=== PATIENT | male | born 1955 | race Caucasian/White ===

== ENCOUNTER 2017-02-20 11:09 | Inpatient (IN) ==
[2017-02-20] MEDS ORDERED: LACTULOSE 20 GM/30 ML UDCUP PO PRN (16:03)
[2017-02-20] MEDS ORDERED: MAGNESIUM SULF RIDER 4 GM in PREMIX 1 EACH IV PRN (16:03)
[2017-02-20] MEDS ORDERED: DOCUSATE SODIUM 100 MG CAPSULE PO PRN (16:03)
[2017-02-20] MEDS ORDERED: MAGNESIUM SULF RIDER 2 GM in PREMIX 1 EACH IV PRN (16:03)
[2017-02-20] MEDS ORDERED: ONDANSETRON 4 MG/2 ML VIAL IV PRN (16:03)
[2017-02-20] MEDS ORDERED: POTASSIUM CHLORIDE 20 MEQ TABLET PO PRN (16:03)
[2017-02-20] MEDS: WARFARIN 7.5 MG TABLET PO SCH (18:16)
[2017-02-20] MEDS ORDERED: AMITRIPTYLINE 50 MG TABLET PO SCH (21:00)
[2017-02-20] MEDS: CARVEDILOL 6.25 MG TABLET PO SCH (21:27)
[2017-02-20] MEDS: traMADol 50 MG TABLET PO PRN (23:50)
[2017-02-21] MEDS: ZALEPLON 5 MG CAPSULE PO PRN (02:00)
[2017-02-21 05:32] LABS: Osmolality,Calculated 281.4 MOS/KG (273-304)
[2017-02-21 05:35] LABS: HDL Cholesterol 19 MG/DL (40-60); Risk Ratio 2.63; Triglycerides 46 MG/DL (2-150); VLDL CHOLESTEROL 9.2 MG/DL
[2017-02-21 06:02] LABS: Cholesterol < 50 MG/DL (50-200)
[2017-02-21 06:37] LABS: Basophils # 0.1 10*3/uL (0.0-0.2); Basophils % 0.8 % (0.0-0.8); Eosinophils # 0.3 10*3/uL (0.0-0.87); Eosinophils % 3.4 % (0.00-10.9); Hematocrit 37.8 VOL% (42.0-52.0); Hemoglobin 11.6 GM/DL (14.0-18.0); Immature Granulocytes % 0.3 %; Immature Granulocytes Absolute 0.03 #; Lymphocytes % 42.8 % (21.2-54.2); Mean Corpuscular HGB Conc 30.7 GM/DL (32-36); Mean Corpuscular Hemoglobin 26 PG (27-34); Mean Corpuscular Volume 85.3 FL (87-102); Mean Platelet Volume 10.1 FL (9.6-12.0); Monocytes # 0.6 10*3/uL (0.11-0.8); Monocytes % 6.5 % (1.7-12.7); NRBC # 0.02 10*3/uL; Neutrophils # 4.3 10*3/uL (1.4-7.4); Neutrophils % 46.2 % (38.7-73.9); Platelet Count 304 T/CUMM (130-400); Red Blood Count 4.43 MC/CUMM (3.8-5.5); Red Cell Distribution Width 16.1 % (9.3-17.3); White Blood Count 9.3 T/CUMM (4-12)
[2017-02-21 06:42] LABS: INR 3.3
[2017-02-21 06:50] LABS: PT Patient Result 33.3 SECS
[2017-02-21] MEDS: ASPIRIN EC 81 MG TABLET PO SCH (08:24)
[2017-02-21] MEDS: GABAPENTIN 400 MG CAPSULE PO SCH (08:24)
[2017-02-21] MEDS: PANTOPRAZOLE 40 MG TABLET PO SCH (08:24)
[2017-02-21] MEDS: CARVEDILOL 6.25 MG TABLET PO SCH ×2 (08:24→21:07)
[2017-02-21] MEDS: MULTIVITAMIN (CENTRUM) TABLET PO SCH (08:24)
[2017-02-21] MEDS: MEXILETINE 200 MG CAPSULE PO SCH (08:24)
[2017-02-21] MEDS: LOSARTAN 50 MG TABLET PO SCH (08:24)
[2017-02-21] MEDS: THIAMINE 100 MG TABLET PO SCH (08:24)
[2017-02-21] MEDS: traMADol 50 MG TABLET PO PRN ×2 (11:14→21:07)
[2017-02-21 13:39] LABS: Hepatitis A Ab IgM Quant 0.49 Index; Hepatitis A Ab IgM Result Negative (Negative); Hepatitis B Core IgM Quant 0.06 Index; Hepatitis B Core IgM Result Negative (Negative); Hepatitis B Surface Ag Quant < 0.10 Index; Hepatitis B Surface Ag Result Negative (Negative); Hepatitis C Virus Ab Quant 0.18 Index; Hepatitis C Virus Ab Result Negative (Negative)
[2017-02-21] MEDS ORDERED: MORPHINE 10 MG/1 ML VIAL ONE ×2 (14:58→22:40)
[2017-02-21] MEDS: MORPHINE 2 MG/1 ML SYRINGE IV PRN ×2 (15:04→22:43)
[2017-02-21] MEDS: FUROSEMIDE 40 MG/4 ML VIAL IV SCH (16:13)
[2017-02-21] MEDS: AMITRIPTYLINE 100 MG TABLET PO SCH (21:06)
[2017-02-22 05:56] LABS: Basophils # 0.1 10*3/uL (0.0-0.2); Basophils % 0.4 % (0.0-0.8); Eosinophils # 0.5 10*3/uL (0.0-0.87); Eosinophils % 3.9 % (0.00-10.9); Immature Granulocytes % 0.4 %; Immature Granulocytes Absolute 0.05 #; Lymphocytes # 6.6 10*3/uL (1.4-4.0); Lymphocytes % 49.2 % (21.2-54.2); Mean Corpuscular HGB Conc 31.6 GM/DL (32-36); Mean Corpuscular Hemoglobin 27 PG (27-34); Mean Corpuscular Volume 84.3 FL (87-102); Mean Platelet Volume 10.2 FL (9.6-12.0); Monocytes # 0.6 10*3/uL (0.11-0.8); Monocytes % 4.1 % (1.7-12.7); NRBC # 0.02 10*3/uL; Neutrophils # 5.7 10*3/uL (1.4-7.4); Platelet Count 334 T/CUMM (130-400); Red Blood Count 4.51 MC/CUMM (3.8-5.5); Red Cell Distribution Width 16.3 % (9.3-17.3); White Blood Count 13.5 T/CUMM (4-12)
[2017-02-22 06:18] LABS: INR 4.3
[2017-02-22 06:23] LABS: Osmolality,Calculated 287.4 MOS/KG (273-304); Potassium 3.9 MMOL/L (3.5-5.1)
[2017-02-22 06:24] LABS: Albumin 2.9 G/DL (3.4-5.0); Bilirubin,Direct 0.71 MG/DL (0.0-0.20); Bilirubin,Indirect 0.9 MG/DL (0.0-1.0); Bilirubin,Total 1.6 MG/DL (0.2-1.0); PT Patient Result 43.1 SECS; Total Protein 5.7 G/DL (6.4-8.3)
[2017-02-22] MEDS: MEXILETINE 200 MG CAPSULE PO SCH (09:15)
[2017-02-22] MEDS: CARVEDILOL 6.25 MG TABLET PO SCH ×2 (09:15→20:52)
[2017-02-22] MEDS: PANTOPRAZOLE 40 MG TABLET PO SCH (09:15)
[2017-02-22] MEDS: LOSARTAN 50 MG TABLET PO SCH (09:15)
[2017-02-22] MEDS: ASPIRIN EC 81 MG TABLET PO SCH (09:15)
[2017-02-22] MEDS: GABAPENTIN 400 MG CAPSULE PO SCH (09:16)
[2017-02-22] MEDS: FUROSEMIDE 40 MG/4 ML VIAL IV SCH (09:16)
[2017-02-22] MEDS: MULTIVITAMIN (CENTRUM) TABLET PO SCH (09:16)
[2017-02-22] MEDS: THIAMINE 100 MG TABLET PO SCH (09:19)
[2017-02-22] MEDS: traMADol 50 MG TABLET PO PRN ×2 (14:40→20:51)
[2017-02-22] MEDS: LORazepam 2 MG/1 ML VIAL IV PRN (14:41)
[2017-02-22] MEDS: SPIRONOLACTONE 25 MG TABLET PO SCH (16:35)
[2017-02-22] MEDS: AMITRIPTYLINE 100 MG TABLET PO SCH (20:51)
[2017-02-23 05:30] LABS: Basophils % 0.3 % (0.0-0.8); Eosinophils # 0.6 10*3/uL (0.0-0.87); Hematocrit 39.5 VOL% (42.0-52.0); Hemoglobin 12.1 GM/DL (14.0-18.0); Immature Granulocytes % 0.5 %; Immature Granulocytes Absolute 0.06 #; Lymphocytes # 4.7 10*3/uL (1.4-4.0); Lymphocytes % 39.5 % (21.2-54.2); Mean Corpuscular HGB Conc 30.6 GM/DL (32-36); Mean Corpuscular Hemoglobin 26 PG (27-34); Mean Corpuscular Volume 85.5 FL (87-102); Mean Platelet Volume 10.5 FL (9.6-12.0); Monocytes # 0.4 10*3/uL (0.11-0.8); Monocytes % 3.2 % (1.7-12.7); Neutrophils # 6.1 10*3/uL (1.4-7.4); Neutrophils % 51.5 % (38.7-73.9); Platelet Count 374 T/CUMM (130-400); Red Blood Count 4.62 MC/CUMM (3.8-5.5); Red Cell Distribution Width 16.3 % (9.3-17.3); White Blood Count 11.9 T/CUMM (4-12)
[2017-02-23 05:42] LABS: INR 3.2
[2017-02-23 05:45] LABS: PT Patient Result 32.6 SECS
[2017-02-23 05:49] LABS: Calcium 8.2 MG/DL (8.5-10.1); Osmolality,Calculated 290.1 MOS/KG (273-304); Potassium 4.2 MMOL/L (3.5-5.1)
[2017-02-23] MEDS: traMADol 50 MG TABLET PO PRN ×2 (09:30→20:53)
[2017-02-23] MEDS: LOSARTAN 50 MG TABLET PO SCH (09:30)
[2017-02-23] MEDS: ASPIRIN EC 81 MG TABLET PO SCH (09:30)
[2017-02-23] MEDS: SPIRONOLACTONE 25 MG TABLET PO SCH (09:30)
[2017-02-23] MEDS: MULTIVITAMIN (CENTRUM) TABLET PO SCH (09:30)
[2017-02-23] MEDS: MEXILETINE 200 MG CAPSULE PO SCH (09:30)
[2017-02-23] MEDS: PANTOPRAZOLE 40 MG TABLET PO SCH (09:31)
[2017-02-23] MEDS: CARVEDILOL 6.25 MG TABLET PO SCH ×2 (09:31→20:53)
[2017-02-23] MEDS: FUROSEMIDE 40 MG TABLET PO SCH (09:31)
[2017-02-23] MEDS: THIAMINE 100 MG TABLET PO SCH (09:31)
[2017-02-23] MEDS: GABAPENTIN 400 MG CAPSULE PO SCH (09:31)
[2017-02-23] MEDS: ACETAMINOPHEN 325 MG TABLET PO PRN (12:10)
[2017-02-23] MEDS: LORazepam 2 MG/1 ML VIAL IV PRN (13:25)
[2017-02-23] MEDS: WARFARIN 7.5 MG TABLET PO SCH (18:50)
[2017-02-23] MEDS: AMITRIPTYLINE 100 MG TABLET PO SCH (20:53)
[2017-02-24] MEDS: traMADol 50 MG TABLET PO PRN ×3 (02:45→17:00)
[2017-02-24 06:06] LABS: PT Patient Result 20.3 SECS
[2017-02-24 06:21] LABS: Calcium 8.4 MG/DL (8.5-10.1); Osmolality,Calculated 285.4 MOS/KG (273-304); Potassium 3.9 MMOL/L (3.5-5.1)
[2017-02-24 06:51] LABS: Basophils % 0.3 % (0.0-0.8); Eosinophils # 0.5 10*3/uL (0.0-0.87); Eosinophils % 4.8 % (0.00-10.9); Hematocrit 39.2 VOL% (42.0-52.0); Hemoglobin 11.8 GM/DL (14.0-18.0); Immature Granulocytes % 0.3 %; Immature Granulocytes Absolute 0.03 #; Lymphocytes # 4.6 10*3/uL (1.4-4.0); Lymphocytes % 45.6 % (21.2-54.2); Mean Corpuscular HGB Conc 30.1 GM/DL (32-36); Mean Corpuscular Hemoglobin 26 PG (27-34); Mean Corpuscular Volume 86.7 FL (87-102); Mean Platelet Volume 10.3 FL (9.6-12.0); Monocytes # 0.4 10*3/uL (0.11-0.8); Monocytes % 4.1 % (1.7-12.7); NRBC # 0.02 10*3/uL; Neutrophils # 4.5 10*3/uL (1.4-7.4); Neutrophils % 44.9 % (38.7-73.9); Platelet Count 338 T/CUMM (130-400); Red Blood Count 4.52 MC/CUMM (3.8-5.5); Red Cell Distribution Width 16.5 % (9.3-17.3)
[2017-02-24] MEDS: CARVEDILOL 6.25 MG TABLET PO SCH ×2 (08:59→20:21)
[2017-02-24] MEDS: ASPIRIN EC 81 MG TABLET PO SCH (08:59)
[2017-02-24] MEDS: GABAPENTIN 400 MG CAPSULE PO SCH (08:59)
[2017-02-24] MEDS: LOSARTAN 50 MG TABLET PO SCH (08:59)
[2017-02-24] MEDS: FUROSEMIDE 40 MG TABLET PO SCH (08:59)
[2017-02-24] MEDS: PANTOPRAZOLE 40 MG TABLET PO SCH (09:00)
[2017-02-24] MEDS: MEXILETINE 200 MG CAPSULE PO SCH (09:00)
[2017-02-24] MEDS: THIAMINE 100 MG TABLET PO SCH (09:00)
[2017-02-24] MEDS: MULTIVITAMIN (CENTRUM) TABLET PO SCH (09:00)
[2017-02-24] MEDS: SPIRONOLACTONE 25 MG TABLET PO SCH (09:00)
[2017-02-24] MEDS: ACETAMINOPHEN 325 MG TABLET PO PRN (12:29)
[2017-02-24] MEDS: WARFARIN 7.5 MG TABLET PO SCH (17:00)
[2017-02-24] MEDS: AMITRIPTYLINE 100 MG TABLET PO SCH (20:21)
[2017-02-24] MEDS: ZALEPLON 5 MG CAPSULE PO PRN (20:21)
[2017-02-25] MEDS: traMADol 50 MG TABLET PO PRN ×4 (00:33→22:13)
[2017-02-25] MEDS: ZALEPLON 5 MG CAPSULE PO PRN (00:34)
[2017-02-25 05:08] LABS: Basophils % 0.3 % (0.0-0.8); Eosinophils # 0.3 10*3/uL (0.0-0.87); Eosinophils % 2.6 % (0.00-10.9); Hematocrit 38.2 VOL% (42.0-52.0); Hemoglobin 11.8 GM/DL (14.0-18.0); Immature Granulocytes % 0.3 %; Immature Granulocytes Absolute 0.04 #; Lymphocytes # 4.7 10*3/uL (1.4-4.0); Lymphocytes % 39.9 % (21.2-54.2); Mean Corpuscular HGB Conc 30.9 GM/DL (32-36); Mean Corpuscular Hemoglobin 26 PG (27-34); Mean Corpuscular Volume 84.7 FL (87-102); Mean Platelet Volume 10.1 FL (9.6-12.0); Monocytes # 0.8 10*3/uL (0.11-0.8); Monocytes % 6.5 % (1.7-12.7); Neutrophils # 5.9 10*3/uL (1.4-7.4); Neutrophils % 50.4 % (38.7-73.9); Platelet Count 366 T/CUMM (130-400); Red Blood Count 4.51 MC/CUMM (3.8-5.5); Red Cell Distribution Width 16.4 % (9.3-17.3); White Blood Count 11.7 T/CUMM (4-12)
[2017-02-25 05:17] LABS: INR 1.9; PT Patient Result 19.7 SECS
[2017-02-25 05:40] LABS: Calcium 8.3 MG/DL (8.5-10.1); Osmolality,Calculated 280.8 MOS/KG (273-304); Potassium 4.7 MMOL/L (3.5-5.1)
[2017-02-25] MEDS: SPIRONOLACTONE 25 MG TABLET PO SCH (08:53)
[2017-02-25] MEDS: MEXILETINE 200 MG CAPSULE PO SCH (08:53)
[2017-02-25] MEDS: THIAMINE 100 MG TABLET PO SCH (08:53)
[2017-02-25] MEDS: MULTIVITAMIN (CENTRUM) TABLET PO SCH (08:53)
[2017-02-25] MEDS: ASPIRIN EC 81 MG TABLET PO SCH (08:53)
[2017-02-25] MEDS: GABAPENTIN 400 MG CAPSULE PO SCH (08:53)
[2017-02-25] MEDS: LOSARTAN 50 MG TABLET PO SCH (08:53)
[2017-02-25] MEDS: FUROSEMIDE 40 MG TABLET PO SCH (08:53)
[2017-02-25] MEDS: CARVEDILOL 6.25 MG TABLET PO SCH ×2 (08:53→20:52)
[2017-02-25] MEDS: PANTOPRAZOLE 40 MG TABLET PO SCH (08:53)
[2017-02-25 09:56] LABS: Albumin 3.5 G/DL (3.4-5.0); Bilirubin,Direct 0.49 MG/DL (0.0-0.20); Bilirubin,Indirect 0.5 MG/DL (0.0-1.0); Total Protein 6.9 G/DL (6.4-8.3)
[2017-02-25] MEDS: WARFARIN 7.5 MG TABLET PO SCH (17:06)
[2017-02-25] MEDS: AMITRIPTYLINE 100 MG TABLET PO SCH (20:52)
[2017-02-26 05:19] LABS: Basophils # 0.1 10*3/uL (0.0-0.2); Basophils % 0.5 % (0.0-0.8); Eosinophils # 0.2 10*3/uL (0.0-0.87); Eosinophils % 1.7 % (0.00-10.9); Hematocrit 39.7 VOL% (42.0-52.0); Hemoglobin 11.7 GM/DL (14.0-18.0); Immature Granulocytes % 0.5 %; Immature Granulocytes Absolute 0.06 #; Lymphocytes # 5.9 10*3/uL (1.4-4.0); Lymphocytes % 51.8 % (21.2-54.2); Mean Corpuscular HGB Conc 29.5 GM/DL (32-36); Mean Corpuscular Hemoglobin 25 PG (27-34); Mean Corpuscular Volume 85.9 FL (87-102); Monocytes # 0.7 10*3/uL (0.11-0.8); Monocytes % 6.2 % (1.7-12.7); NRBC # 0.04 10*3/uL; Neutrophils # 4.5 10*3/uL (1.4-7.4); Neutrophils % 39.3 % (38.7-73.9); Platelet Count 363 T/CUMM (130-400); Red Blood Count 4.62 MC/CUMM (3.8-5.5); Red Cell Distribution Width 16.6 % (9.3-17.3); White Blood Count 11.4 T/CUMM (4-12)
[2017-02-26 05:39] LABS: Eosinophils 5 % (0-10); Lymphocytes 42 % (20-55); Platelet Estimate Adequate; Segmented Neutrophils 46 % (50-85); Total Cells Counted 100
[2017-02-26 05:40] LABS: Calcium 8.9 MG/DL (8.5-10.1); Giant Platelets Few; Hypochromasia 1+; Osmolality,Calculated 284.7 MOS/KG (273-304); Ovalocytes Slight; Potassium 4.5 MMOL/L (3.5-5.1)
[2017-02-26] MEDS: MULTIVITAMIN (CENTRUM) TABLET PO SCH (08:27)
[2017-02-26] MEDS: LOSARTAN 50 MG TABLET PO SCH (08:27)
[2017-02-26] MEDS: MEXILETINE 200 MG CAPSULE PO SCH (08:28)
[2017-02-26] MEDS: FUROSEMIDE 40 MG TABLET PO SCH (08:28)
[2017-02-26] MEDS: ASPIRIN EC 81 MG TABLET PO SCH (08:28)
[2017-02-26] MEDS: CARVEDILOL 6.25 MG TABLET PO SCH (08:28)
[2017-02-26] MEDS: GABAPENTIN 400 MG CAPSULE PO SCH (08:28)
[2017-02-26] MEDS: traMADol 50 MG TABLET PO PRN ×2 (08:28→13:52)
[2017-02-26] MEDS: THIAMINE 100 MG TABLET PO SCH (08:28)
[2017-02-26] MEDS: SPIRONOLACTONE 25 MG TABLET PO SCH (08:29)
[2017-02-26] MEDS: PANTOPRAZOLE 40 MG TABLET PO SCH (08:29)
[2017-02-26 11:04] LABS: INR 1.8; PT Patient Result 18.5 SECS
[2017-02-26 15:51] VITALS: BP 115/80
[2017-02-27] MEDS ORDERED: FUROSEMIDE 40 MG TABLET PO SCH (09:00)
== END 2017-02-26 15:52 | DRG 291 ==
LOC: N.TELEN
PROVIDERS: ADMIT Internal Medicine Cardiovascular Disease; ATTEND Internal Medicine Cardiovascular Disease